=== PATIENT | female | born 1995 | race Two or more races ===

== ENCOUNTER 2025-07-07 07:43 | Emergency (ER) | payer MEDICAID, SELFPAY ==
[2025-07-07 08:05] VITALS: BP 126/82; PULSE 63; RESP 19; O2SAT 98
--- NOTE | 2025-07-07 08:09 | XR_ITS ---
Examination: Knee, left, 3 views Technique: Knee AP, lateral, oblique 3 views Date and time of exam: July 07, 2025, 0839 hours INDICATIONS: Patient fell on concrete today with injury of the knee, knee pain. FINDINGS: No fracture or dislocation. Small knee effusion IMPRESSION: No acute fracture
--- NOTE | 2025-07-07 08:14 | EDNOTE_ITS ---
<Statement entered by Gia Guo MD - 07/13/25 14:45> As co-signing physician, I was present and available for consult prn. I concur with the plan and care as documented by the midlevel provider. Lower Extremity Injury RME/HPI General Chief Complaint: Extremity Injury, Lower Stated Complaint: FELL ON L) KNEE Time Seen by Provider: 07/07/25 07:48 Arrival date/time: 07/07/25 07:43 This is a 29-year-old female that comes into the emergency room with complaints of left knee pain. Patient states she had a fall yesterday morning. Patient has not radiated to her left knee. Patient denies any other injuries. Patient reports a tetanus shot in the last 5 years. Related Data Home Medications ?Medication ?Instructions ?Recorded ?Confirmed codeine sulfate 15 mg tablet 04/16/20 Previous Rx's ?Medication ?Instructions ?Recorded albuterol sulfate 90 mcg/actuation 2 puff inhalation Q ID PRN 04/16/20 aerosol inhaler shortness of breath or wheez ing #18 grams melatonin 3 mg capsule 3 mg PO HS PRN sleep #20 cap s 04/16/20 IBU 800 mg tablet (ibuprofen) 800 mg PO Q6H PRN pain # 30 tabs 06/17/24 baclofen 10 mg tablet 10 mg PO BID #20 tabs prednisone 20 mg tablet 40 mg PO QDAY #10 tabs 06/17 cephalexin 500 mg capsule 500 mg PO TID 7 days #21 cap s 07/07/25 ibuprofen 600 mg tablet 600 mg PO QID PRN pain #14 t abs 07/07/25 Allergies Allergy/AdvReac Type Severity Reaction Status Date / Time No Known Allergies Allergy Verified 07/07/25 07:45 Review of Systems Review of Systems Systems Reviewed: All systems reviewed, normal except as documented Past Medical History Past Medical History Comments PMH COMMENT: Denies ED Exam Narrative Physical exam: VITAL SIGNS: Reviewed. GENERAL APPEARANCE: Alert and interactive, follows commands, no acute distress HEAD AND FACE: Non-traumatic. ENT: PERRL, conjuctiva pink and clear, eyelid no trauma, Mucous membrane moist. NECK: Supple, nontender, no nuchal rigidity. CHEST: No tenderness, no crepitus, no paradoxical movement, no retractions. LUNGS: breathing even and unlabored HEART: Regular rate, cap refill less than 2 seconds ABDOMEN: Soft NEUROLOGICAL: Gross motor function intact sensory function intact, Appropriate for age. MUSCULOSKELETAL: low back nontender, full range of motion. no midline tenderness, no meningismus, no step offs EXTREMITIES: No redness no swelling no skin breakdown on bilateral foot and leg. Distal neurovascular status intact bilateral foot SKIN: Color pink, dry, small abrasion approximately 2 cm to left knee. No laceration. Course Quality Measures none Orders Category Date Time Status Apply knee immobilizer NOW Care 07/07/25 10:32 Completed Cleanse Wound NEEDED Care 07/07/25 10:12 Completed XR knee LT 3V Stat Exams 07/07/25 08:09 Completed Vital Signs Vital signs: Vital Signs Pulse Rate 63 07/07/25 08:05 Respiratory Rate 19 07/07/25 08:05 Blood Pressure 126/82 07/07/25 08:05 Pulse Oximetry (%) 98 07/07/25 08:05 Oxygen Delivery Method Room Air 07/07/25 08:05 Extremity Injury, Lower MDM Narrative MDM Narrative:: x ray of knee: FINDINGS: No fracture or dislocation. Small knee effusion IMPRESSION: No acute fracture Today patient had xrays There was no acute fracture seen. Exam appeared unremarkable. I explained to patient at length that if there was continued pain to this area or worsened to come back to ED or see primary provider for more xrays or further testing such as CT scan or MRI. X rays are not perfect and sometimes serial films needed. Patient verbalized understanding. Patient states they will follow up with primary provider in 1-2 days or come back to ED if symptoms change or worsen. Dragon dictation: Although this document has been carefully reviewed, there may still be some phonetic and other typographical errors. These errors are purely grammatical due to imperfections in the software program and should not be construed in any way to compromise the substance of the patient's medical care during this visit. Patient data External records reviewed:: [facility] previous records Clinical information provided by:: patient Social determinants that could affect healthcare access:: none Patient has the following chronic illnesses:: Denies How is presenting disease/condition affected by chronic disease/condition?: no chronic disease Evaluation data The following diagnostics were reviewed and interpreted by me:: radiology exam(s) Lab and/or radiology exams considered but not ordered:: SEE NOTE Interpretation Summary: SEE NOTE Medications / Prescriptions Medications or Prescriptions considered but not ordered:: NONE Medication administrations:: SEE NOTE Consultations Consultation(s) initiated? (list below): No Diagnosis Extremity Injury, Lower Differential Diagnosis: other (Knee contusion, knee fr acture, LACERATION ) Most likely diagnosis given after review of the tests above:: CONTUSION Admission Indicated Admission indicated?: not indicated Admission Request Was there a request for admission?: No Disposition Plan Disposition Plan: Discharge Discharge Attestation Discharge Attestation: The patient and all family members were given an opportunity to ask questions and understood the discharge instructions. Discharge instructions specifically effects, indications for sooner follow up or return to the emergency department, and the expected course of current diagnosis. Patient condition: Stable Discharge Plan Plan Patient Disposition: HOME (Self Care) Patient condition on transfer: Stable Prescriptions/Referrals Prescriptions/Med Rec: New ibuprofen 600 mg tablet 600 mg PO QID PRN (Reason: pain) Qty: 14 0RF cephalexin 500 mg capsule 500 mg PO TID 7 Days Qty: 21 0RF No Action codeine sulfate 15 mg Tablet melatonin 3 mg capsule 3 mg PO HS PRN (Reason: sleep) Qty: 20 0RF albuterol sulfate 90 mcg/actuation HFA aerosol inhaler 2 puff IH QID PRN (Reason: shortness of breath or wheezing) Qty: 18 0RF baclofen 10 mg tablet 10 mg PO BID Qty: 20 0RF ibuprofen [IBU] 800 mg tablet 800 mg PO Q6H PRN (Reason: pain) Qty: 30 0RF prednisone 20 mg tablet 40 mg PO QDAY Qty: 10 0RF Taper: Prednisone Taper 20 mg DAILY for 2 Days and 0 Hour 10 mg DAILY for 2 Days and 0 Hour 5 mg DAILY for 7 Days and 0 Hour Referrals: Chandra Snow MD [Primary Care Provider, Family Practice] - In 1 week Problem List Clinical Impression: Abrasion of knee, Contusion of knee Patient/Caregiver Discharge Instructions Discharge Activity: activity as tolerated Education Materials: Bruises (Contusions) Additional Instructions: Follow up with primary provider in 1-2 days. Come back to ED if symptoms change or worsen Print Language: Nepali Stand Alone Forms: Irma Award Info., Patient Portal Info Letter PA/DAVID Supervising Physician PA/DAVID Supervising Physician: alissa
--- NOTE | 2025-07-07 10:46 | PC.NURSE ---
Addendum entered by Sandra Ozuna LVN 07/07/25 10:51: KNEE IMOBILIZER AND CRUTCHES APPLIED PER PROVIDERS ORDER Original Note: WOUND CARE AND DRESSING APPLIED TO L KNEE, KNEE IMOBILIZER IN PLACE, CRUTCHES ALSO GIVEN TO PT. EDUCATION VERBALIZED, DEMONSTRATION WAS DONE AND PT RETURNED DEMONSTRATION USING CRUTCHES SUCCESSFULLY. PT DENIES PAIN AT THIS TIME AFTER KNEE IMOBILIZER WAS IN PLACE.
== END 2025-07-07 11:04 | disposition home or self-care (01) ==
PROVIDERS: Emergency Provider Emergency Medicine; PCP Family Medicine
DX: S80.212A Abrasion, left knee, initial encounter (principal); W19.XXXA Unspecified fall, initial encounter
CPT/HCPCS: 73562; 99281